=== PATIENT | female | born 1990 | race Caucasian/White ===

== ENCOUNTER 2018-02-14 14:38 | Emergency (ER) | payer OTHER ==
[~2018-02-14] VITALS: Ht 167.6 cm; Wt 104.0 kg
[2018-02-14] MEDS ORDERED: CYCLOBENZAPRINE 10MG TABLET PO ONE (16:30)
[2018-02-14] MEDS ORDERED: IBUPROFEN 800MG TABLET PO ONE (16:30)
[2018-02-14 16:43] VITALS: BP 125/51
== END 2018-02-14 18:55 | disposition home or self-care (01) ==
LOC: ER 15:19
DX: S76.019A Strain of muscle, fascia and tendon of unspecified hip, initial encounter (principal); F17.200 Nicotine dependence, unspecified, uncomplicated; V89.2XXA Person injured in unspecified motor-vehicle accident, traffic, initial encounter; Y92.410 Unspecified street and highway as the place of occurrence of the external cause
CPT/HCPCS: 73502; 81025; 99284

== ENCOUNTER 2018-02-17 11:09 | Emergency (ER) | payer OTHER ==
[~2018-02-17] VITALS: Ht 167.6 cm; Wt 106.0 kg
[2018-02-17 11:33] VITALS: BP 134/67
[2018-02-17] MEDS ORDERED: IBUPROFEN 600MG TABLET PO NR (15:00)
== END 2018-02-17 15:34 | disposition home or self-care (01) ==
LOC: ER 11:09
DX: M79.672 Pain in left foot (principal)
CPT/HCPCS: 73610; 73630; 81025; 99284